=== PATIENT | female | born 1965 | race Caucasian/White ===

== ENCOUNTER 2018-06-14 09:56 | Outpatient (RCR) | payer MEDICAID, SELFPAY ==
--- NOTE | 2018-06-14 11:00 | [facility].PTOPEV ---
PT Outpatient Evaluation Rehab PT Outpatient Evaluation Start: 06/14/18 10:01 Freq: Status: Active Protocol: Document 06/14/18 10:14 JAYLIN (Rec: 06/14/18 11:00 JAYLIN [id number]) Electronically Signed By Alfredo Tatum, PT 06/14/18 10:14 Outpatient Therapy Subjective History Subjective History This is the initial physical therapy evaluation for Venus Cody. Pt is a 53 y/o female referred to PT for c/o R inguinal, ant/post thigh, and R buttock pain. Pt rpeorts pain begani in inguinal area insidiously ~ 8 months ago. Pt reports she had sharp shooting/tabbing pains in R hip/inguinal area. Pt reports after a few weeks to a month she began having pain into anterior thigh and post/ lateral thigh and buttocks. Chief Complaint Pain Symptom Type Ache Throb Sharp Dull Stabbing Shooting Symptoms Relieved By Rest/Positioning Symptoms Aggravated By Standing Physical Activity Walking Prior Functional Limitations None Current Functional Limitations Squatting Recreation Activity Walking Stairs Symptom Description Constant but Variable Level of pain today (0-10) 4 Pain scale - at its best (0-10) 1 Pain scale - at its worst (0-10) 7 Lumbopelvic Eval Posture Thoracic Spine Posture Standing Position Neutral Lumbar Spine Posture Standing Position Neutral Assistive device Assistive Devices None / NA Gait Observation General Gait Pattern Observation Antalgic Gait Decrease Weight Bear (R) Decrease Stride Lngth (L) Palapation tenderness bilateral thoracic spinal tenderness No lumbar spinal tenderness Yes: TTP w/ PA at L4/5 paraspinal tenderness No buttock tenderness No tenderness over symphysis pubis No Lumbar/Sacral Palpation Findings Tenderness Accessory Movement L5 right Range of Motion Lumbar Spine ROM Reason Not Measured Within Functional Limits Manual Muscle Test Bilateral Knee Extension Strength Grade 5 Normal Knee Flexion Stren
== END 2018-06-14 09:59 | disposition home or self-care (01) ==
LOC: PT 09:56
PROVIDERS: Visit Provider Nurse Practitioner Family
DX: M54.5 Low back pain (principal)
CPT/HCPCS: 97163